=== PATIENT | female | born 2000 | race Caucasian/White ===

== ENCOUNTER 2022-04-30 20:45 | Observation (INO) ==
[2022-04-30] MEDS ORDERED: SODIUM CHLORIDE 0.9% 1000ML 1,000 ML IV SCH (21:15)
[2022-04-30 21:30] LABS: Basophils # (auto) 0.02 K/uL (0-0.2); Basophils % (auto) 0.2 %; Eosinophils # (auto) 0.05 K/uL (0-0.50); Eosinophils % (auto) 0.5 %; Hematocrit (blood only) 37.7 % (34.1-44.9); Hemoglobin 12.3 g/dl (12.0-16.0); Immature Granulocytes # (auto) 0.03 K/uL (0.00-0.02); Immature Granulocytes % (auto) 0.3 %; Lymphocytes # (auto) 2.14 K/uL (1.2-3.4); Lymphocytes % (auto) 22.7 %; Mean Corpuscular Hemoglobin 27.3 pg (25.0-34.0); Mean Corpuscular Hgb Conc 32.6 g/dL (32.0-36.0); Mean Corpuscular Volume 83.6 fL (80.0-100.0); Mean Platelet Volume 10.2 fL (9.4-12.3); Monocytes # (auto) 0.59 K/uL (0.24-0.82); Monocytes % (auto) 6.3 %; Neutrophils # (auto) 6.61 K/uL (1.4-6.5); Platelet Count 331 K/uL (130-400); RDW Coefficient of Variation 14.2 % (11.5-14.5); RDW Standard Deviation 43.3 fL (36.4-46.3); Red Blood Count 4.51 M/uL (3.93-5.22); White Blood Count 9.44 K/ul (4.8-10.8)
[2022-04-30] MEDS ORDERED: SODIUM CHLORIDE 0.9% 1000ML 1,000 ML IV ONE (21:33)
[2022-04-30] MEDS ORDERED: KETOROLAC TROMETHAMINE 15 MG/ML VIAL IV ONE (21:34)
[2022-04-30] MEDS ORDERED: PROCHLORPERAZINE 1 ML IV ONE (21:34)
[2022-04-30] MEDS ORDERED: OPTIRAY 320 125ml IV ONE (21:37)
[2022-04-30 21:42] LABS: Partial Thromboplastin Time 28.7 Seconds (21.0-31.0); Prothrombin Time 11.1 Seconds (9.0-12.0)
[2022-04-30 21:43] LABS: Pregnancy Test, Serum Negative (Negative)
[2022-04-30] MEDS ORDERED: diphenhydrAMINE 50 MG/ML VIAL ONE (21:44)
[2022-04-30 21:55] LABS: Albumin Globulin Ratio 1.4 (0.9-2); Albumin Level 4.4 gm/dl (3.4-5.0); BUN Creatinine Ratio 14.5 (10-20); Bilirubin,Total 0.2 mg/dl (0.2-1.0); Calcium 9.8 mg/dl (8.5-10.1); Creatinine Clr Calc Pharmacy 108.2 ml/min; Est GFR (African American) 146.3 ml/min; Est GFR (Non-African American) 126.2 ml/min; Globulin 3.1 gm/dl (2.5-4.0); Potassium 3.6 mmol/L (3.5-5.1); Total Protein 7.5 gm/dl (6.0-8.3)
[2022-04-30 21:56] LABS: Troponin I High Sensitivity 2.6 pg/ml (0-14)
--- NOTE | 2022-04-30 22:05 | CT Scan Report ---
CT angio neck with con, CT angio head w con, CT head/brain wo con CLINICAL HISTORY: Stroke Like Symptoms TECHNIQUE: Contiguous axial CT images of the head were acquired from the base of the skull to the michael luis without intravenous contrast administration. CT angiography of the head and neck was performed f ollowing intravenous administration of iodinated contrast. Coronal and sagittal MIPS were obtained fr om the axial data set and were submitted for review. Automated dose lowering techniques and/or adjus tment according to patient size were utilized for this examination. All measurements were calculated based on NASCET criteria. CT DOSE: 1015.17 mGy.cm Comparison: None available at the time of this dictation. FINDINGS: CT head: There is no acute intracranial hemorrhage or evidence of acute territorial infarction. No sh ift of the midline structures, mass effect, or extra-axial abnormalities are shown. Lungs and soft tissues are unremarkable. CTA Neck: A 3 vessel aortic arch is shown. There is no significant atherosclerotic plaque in the aor tic arch or the origins of the innominate, left common carotid, and left subclavian arteries. The c ommon carotid, external carotid, cervical segments of the internal carotid arteries, and the cervical segments of the vertebral arteries are patent without hemodynamically significant stenosis. The vert ebral arteries are codominant. CTA Head: The anterior and posterior cerebral circulations are patent. No hemodynamically significan t stenosis, aneurysm, dissection, or arteriovenous malformation is shown. origin of the left po sterior cerebral artery is seen. IMPRESSION: 1. No acute intracranial hemorrhage, evidence of acute territorial infarction, or other acute intrac ranial disease process. 2. No occlusion, hemodynamically significant stenosis, aneurysm, dissection, or arteriovenous malfor mation in the major intracranial arteries. 3. No occlusion, hemodynamically significant stenosis, or dissection in the major cervical arteries. Assessment of stenosis of the internal carotid arteries is based on NASCET criteria. ACT 112: Negative or not required by law. Electronically signed by: Miguel Phillips M.D. 04/30/2022 10:03 PM
[2022-04-30] MEDS ORDERED: dexAMETHasone**PF** 10 MG/ML VIAL IV ONE (23:14)
[2022-04-30] MEDS ORDERED: MAGNESIUM SULFATE / D5W 1 GM/100 ML BAG IV STA (23:14)
[2022-04-30] MEDS ORDERED: METOCLOPRAMIDE HCL INJ 5 MG/ML 2 ML VIAL IV ONE (23:14)
--- NOTE | 2022-05-01 01:09 | Emergency Department Note ---
Impression & Plan Headache, Left arm numbness ED Provider Note INFORMANT: Patient and mother ED PROVIDER(S): Butch Almazan MD CHIEF COMPLAINT: Headache PLAN: Disposition: Admitted Condition: Good Outpatient prescription management: none Referral: None MEDICAL DECISION MAKING: Patient presented to the emergency department because of headache and strokelike symptoms. She was promptly evaluated. Her aphasia and left arm numbness had resolved. She had a nonfocal neurologic examination. She was taken urgently to CT for imaging. CT angiography of the head and neck and brain imaging without did not reveal any acute pathology. Patient was hydrated. She was treated initially with Toradol Compazine and Benadryl. She was reassessed. She was feeling minimal change of the headache. Additional medication was given with IV Reglan and magnesium. Patient was monitored. She was reassessed and headache had resolved. The patient had concerning strokelike symptoms in the setting of headache. Complex migraine seems to be very likely etiology however further management will be necessary. Neurology consultation is not immediately available. MR imaging is indicated. I discussed further management with the patient and mother and they were in agreement. Consultation was made with Dr. Abad Caldwell of the [facility] service. Patient was evaluated in the ER for further management. Triage Nursing notes reviewed and agree them. Vital Signs: reviewed and remarkable for no significant abnormalities Differential diagnosis: CVA, TIA, complex migraine headache, meningitis, sinusitis, CO exposure, ICH, SAH, infection, tumor, headache, sinus thrombosis, arterial dissection, as well as other pathologies. Diagnostics interpreted by me: EC Lead ECG performed and revealed Normal sinus rhythm at 62 normal [place], QRS normal. No elevation or depression. No PACs or PVCs Cardiac Monitoring: Cardiac monitoring ordered by me: The patient was placed on continuous cardiac monitoring and observed. It revealed a normal sinus rhythm at 75 beats per minute without ectopy or evidence of dysrhythmia. Imaging studies: CT angiography of the head and neck are negative for acute pathology. HPI: The patient is a 21year old female who presents to the Emergency Room with complaints of headache. This started this evening and is currently rated as severe. Patient has a history of headaches but has never been formally diagnosed with migraines. The patient also notes the following associated symptoms, difficulty forming words and numbness to the left arm which were new symptoms never before experienced. The patient has taken aspirin medication for relieving factors. Current pain is rated as 10/10. Patient denies any trauma. Mother accompanies patient and helps with history. Patient developed headache and symptoms. She became anxious and then began to breathe fast. EMS was summoned. Pt denies LOC, fevers, chills, diaphoresis, visual changes, neck pain, chest pain, breathing difficulties, nausea, vomiting, abdominal pain, back pain, melena, hematochezia, urinary symptoms, weakness, lymphadenopathy, rash, or other complaints. ROS: See above HPI for pertinent positives & negatives. A total of 10 systems reviewed and were otherwise negative. PAST MEDICAL HISTORY:See Below , headaches PAST SURGICAL HISTORY:See Below, FAMILY HISTORY:See Below SOCIAL HISTORY:See Below, lives with family HOME MEDICATIONS:See Below ALLERGIES:See Below VITALS:See Below PHYSICAL EXAMINATION: GENERAL: Awake, alert, well appearing, no distress HENT: Normocephalic, atraumatic. Oropharynx unremarkable. EYES: PERRL. EOMI. Normal conjunctiva. Sclera non-icteric. NECK: Supple. Normal inspection. Non-tender. No nuchal rigidity. FROM. No bruit. RESPIRATORY: Breath sounds equal. No wheezes. No rhonchi. Normal respiratory effort. CARDIAC: Normal rate. Regular rhythm. No murmurs. No rubs. No JVD. GI: Soft, non distended. No tenderness to palpation. No rebound or guarding. No masses. RECTAL: Deferred. MUSCULOSKELETAL: Unremarkable. No edema. No discoloration. Gross motor strength symmetric. NEURO: Cranial nerves 2-12 grossly intact. Normal sensorium. No sensory or motor deficits noted. Speech normal. No pronator drift. Normal rapid alternating movements. SKIN: No rash or jaundice noted. LYMPH: No adenopathy. Butch Almazan MD Past Med/Surg History Social History Smoking Status: Never smoker Feels Safe at Home: Yes Results & Data (ED) Vital Signs Vital Signs - 24 hr 04/30/22 20:49 04/30/22 22:18 04/30/22 23:19 Temperature 36.7 C Temperature Source Oral Pulse Rate 76 Pulse Rate [Finger] 61 66 Pulse Rhythm Regular Pulse Rhythm [Finger] Regular Regular Pulse Strength Normal Pulse Strength [Finger] Normal Normal Respiratory Rate 20 16 18 Respiratory Effort / Characteristics Non-Labored Spontaneous Non-Labored Spontaneous Non-Labored Spontaneous Respiratory Depth Normal Normal Normal Respiratory Pattern Regular Blood Pressure 116/67 Blood Pressure [Right Arm] 103/64 98/54 L Blood Pressure Mean 83 Blood Pressure Mean [Right Arm] 77 68 Blood Pressure Position Sitting Blood Pressure Position [Right Arm] Sitting Sitting Pulse Oximetry 100 98 99 Oxygen Delivery Method Room Air Room Air Room Air Sepsis Recent Fever Within 48 Hours No Sepsis New/Unexplained Change in Mental Status No Sepsis Action Taken by Nursing No Action Required 05/01/22 00:32 Temperature Temperature Source Pulse Rate Pulse Rate [Finger] 75 Pulse Rhythm Pulse Rhythm [Finger] Regular Pulse Strength Pulse Strength [Finger] Normal Respiratory Rate 16 Respiratory Effort / Characteristics Non-Labored Spontaneous Respiratory Depth Normal Respiratory Pattern Blood Pressure Blood Pressure [Right Arm] 100/57 L Blood Pressure Mean Blood Pressure Mean [Right Arm] 71 Blood Pressure Position Blood Pressure Position [Right Arm] Sitting Pulse Oximetry 99 Oxygen Delivery Method Room Air Sepsis Recent Fever Within 48 Hours Sepsis New/Unexplained Change in Mental Status Sepsis Action Taken by Nursing Laboratory Data Result diagrams: 04/30/22 21:19 04/30/22 21:19 Lab Results 04/30/22 04/30/22 04/30/22 Range/Units 21:18 21:19 21:19 WBC 9.44 (4.8-10.8) K/ul RBC 4.51 (3.93-5.22) M/uL Hgb 12.3 (12.0-16.0) g/dl Hct 37.7 (34.1-44.9) % MCV 83.6 (80.0-100.0) fL MCH 27.3 (25.0-34.0) pg MCHC 32.6 (32.0-36.0) g/dL RDW Std Deviation 43.3 (36.4-46.3) fL RDW Coeff of Lara 14.2 (11.5-14.5) % Plt Count 331 (130-400) K/uL MPV 10.2 (9.4-12.3) fL Immature Gran % (Auto) 0.3 % Neut % (Auto) 70.0 % Lymph % (Auto) 22.7 % [place] % (Auto) 6.3 % Eos % (Auto) 0.5 % Baso % (Auto) 0.2 % Neut # (Auto) 6.61 H (1.4-6.5) K/uL Lymph # (Auto) 2.14 (1.2-3.4) K/uL [place] # (Auto) 0.59 (0.24-0.82) K/uL Eos # (Auto) 0.05 (0-0.50) K/uL Baso # (Auto) 0.02 (0-0.2) K/uL Immature Gran # (Auto) 0.03 H (0.00-0.02) K/uL PT (9.0-12.0) Seconds INR (0.9-1.1) APTT (21.0-31.0) Seconds PTT Ratio Sodium (136-145) mmol/L Potassium (3.5-5.1) mmol/L Chloride (98-107) mmol/L Carbon Dioxide (21-32) mmol/L Anion Gap (3-11) BUN (6-23) mg/dl Creatinine (0.6-1.2) mg/dl Est Cr Clr Drug Dosing ml/min Est GFR ( Amer) ml/min Est GFR (Non-Af Amer) ml/min BUN/Creatinine Ratio (10-20) Glucose (70-99(Fasting)) mg/dl POC Glucose 89 (70-99) mg/dl Calcium (8.5-10.1) mg/dl Magnesium (1.7-2.4) mg/dl Total Bilirubin (0.2-1.0) mg/dl AST (13-39) U/L ALT (7-52) U/L Alkaline Phosphatase (34-104) U/L Troponin I High Sens (0-14) pg/ml Total Protein (6.0-8.3) gm/dl Albumin (3.4-5.0) gm/dl Globulin (2.5-4.0) gm/dl Albumin/Globulin Ratio (0.9-2) HCG, Qual Negative (Negative) SARS-CoV-2, RNA, NAAT (NEGATIVE) 04/30/22 04/30/22 05/01/22 Range/Units 21:19 21:19 01:01 WBC (4.8-10.8) K/ul RBC (3.93-5.22) M/uL Hgb (12.0-16.0) g/dl Hct (34.1-44.9) % MCV (80.0-100.0) fL MCH (25.0-34.0) pg MCHC (32.0-36.0) g/dL RDW Std Deviation (36.4-46.3) fL RDW Coeff of Lara (11.5-14.5) % Plt Count (130-400) K/uL MPV (9.4-12.3) fL Immature Gran % (Auto) % Neut % (Auto) % Lymph % (Auto) % [place] % (Auto) % Eos % (Auto) % Baso % (Auto) % Neut # (Auto) (1.4-6.5) K/uL Lymph # (Auto) (1.2-3.4) K/uL [place] # (Auto) (0.24-0.82) K/uL Eos # (Auto) (0-0.50) K/uL Baso # (Auto) (0-0.2) K/uL Immature Gran # (Auto) (0.00-0.02) K/uL PT 11.1 (9.0-12.0) Seconds INR 1.0 (0.9-1.1) APTT 28.7 (21.0-31.0) Seconds PTT Ratio 1.0 Sodium 139 (136-145) mmol/L Potassium 3.6 (3.5-5.1) mmol/L Chloride 105 (98-107) mmol/L Carbon Dioxide 25 (21-32) mmol/L Anion Gap 9 (3-11) BUN 10 (6-23) mg/dl Creatinine 0.69 (0.6-1.2) mg/dl Est Cr Clr Drug Dosing 108.2 ml/min Est GFR ( Amer) 146.3 ml/min Est GFR (Non-Af Amer) 126.2 ml/min BUN/Creatinine Ratio 14.5 (10-20) Glucose 93 (70-99(Fasting)) mg/dl POC Glucose (70-99) mg/dl Calcium 9.8 (8.5-10.1) mg/dl Magnesium 2.0 (1.7-2.4) mg/dl Total Bilirubin 0.2 (0.2-1.0) mg/dl AST 13 (13-39) U/L ALT 13 (7-52) U/L Alkaline Phosphatase 87 (34-104) U/L Troponin I High Sens 2.6 (0-14) pg/ml Total Protein 7.5 (6.0-8.3) gm/dl Albumin 4.4 (3.4-5.0) gm/dl Globulin 3.1 (2.5-4.0) gm/dl Albumin/Globulin Ratio 1.4 (0.9-2) HCG, Qual (Negative) SARS-CoV-2, RNA, NAAT NEGATIVE (NEGATIVE) Administered Medications Sodium Chloride (Nss 1000ml) 1,000 mls @ 50 mls/hr IV .Q20H JENNIFFER Stop: 05/30/22 21:14 Last Admin: 05/01/22 01:11 Dose: 50 mls/hr Documented By: WILL Discontinued Medications Dexamethasone Sodium Phosphate (DexamethasonePf 10 Mg/Ml Vial) 10 mg IV NOW ONE Stop: 04/30/22 23:15 Last Admin: 04/30/22 23:21 Dose: 10 mg Documented By: WILL Diphenhydramine HCl (Diphenhydramine 50 Mg/Ml Vial) Confirm Administered Dose 50 mg .ROUTE .STK-MED ONE Stop: 04/30/22 21:45 Last Admin: 04/30/22 21:51 Dose: Not Given Documented By: WILL Sodium Chloride (Nss 1000ml) 1,000 mls @ 999 mls/hr IV .Q1H1M ONE Stop: 04/30/22 22:33 Last Infusion: 05/01/22 00:32 Dose: 0 mls/hr Documented By: Admin: 04/30/22 21:45 Dose: 999 mls/hr Documented By: WILL Prochlorperazine (Compazine) 1 mls @ 1 mls/min IV ONE ONE Stop: 04/30/22 21:35 Last Admin: 04/30/22 21:46 Dose: 1 mls/min Documented By: WILL Diphenhydramine HCl 12.5 mg/ (Syringe) 0.25 mls @ 1 mls/hr IV NOW STA Stop: 04/30/22 21:48 Last Admin: 04/30/22 21:51 Dose: 1 mls/hr Documented By: WILL Magnesium Sulfate/Dextrose (Magnesium Sulfate / D5w) 1 gm in 100 mls @ 100 mls/hr IV NOW STA Stop: 05/01/22 00:13 Last Infusion: 05/01/22 00:31 Dose: 0 mls/hr Documented By: Admin: 04/30/22 23:21 Dose: 100 mls/hr Documented By: WILL Ioversol (Optiray 320 125ml) 120 ml IV ONCE ONE Stop: 04/30/22 21:38 Last Admin: 04/30/22 21:38 Dose: 120 ml Documented By: ULISSES Ketorolac Tromethamine (Ketorolac Tromethamine 15 Mg/Ml Vial) 10 mg IV NOW ONE Stop: 04/30/22 21:35 Last Admin: 04/30/22 21:54 Dose: 10 mg Documented By: WILL Metoclopramide HCl (Metoclopramide Hcl Inj 5 Mg/Ml 2 Ml Vial) 5 mg IV ONE ONE Stop: 04/30/22 23:15 Last Admin: 04/30/22 23:21 Dose: 5 mg Documented By: WILL Imaging Data Radiologist's Impression: Head CT 04/30/22 21:08 CT angio neck with con, CT angio head w con, CT head/brain wo con CLINICAL HISTORY: Stroke Like Symptoms TECHNIQUE: Contiguous axial CT images of the head were acquired from the base of the skull to the vertex without intravenous contrast administration. CT angiography of the head and neck was performed following intravenous administration of iodinated contrast. Coronal and sagittal MIPS were obtained from the axial data set and were submitted for review. Automated dose lowering techniques and/or adjustment according to patient size were utilized for this examination. All measurements were calculated based on NASCET criteria. CT DOSE: 1015.17 mGy.cm Comparison: None available at the time of this dictation. FINDINGS: CT head: There is no acute intracranial hemorrhage or evidence of acute territorial infarction. No shift of the midline structures, mass effect, or extra-axial abnormalities are shown. Lungs and soft tissues are unremarkable. CTA Neck: A 3 vessel aortic arch is shown. There is no significant atheroscler otic plaque in the aortic arch or the origins of the innominate, left common carotid, and left subclavian arteries. The common carotid, external carotid, cervical segments of the internal carotid arteries, and the cervical segments of the vertebral arteries are patent without hemodynamically significant stenosis. The vertebral arteries are codominant. CTA Head: The anterior and posterior cerebral circulations are patent. No hemodynamically significant stenosis, aneurysm, dissection, or arteriovenous malformation is shown. origin of the left posterior cerebral artery is seen. IMPRESSION: 1. No acute intracranial hemorrhage, evidence of acute territorial infarction, or other acute intracranial disease process. 2. No occlusion, hemodynamically significant stenosis, aneurysm, dissection, or arteriovenous malformation in the major intracranial arteries. 3. No occlusion, hemodynamically significant stenosis, or dissection in the major cervical arteries. Assessment of stenosis of the internal carotid arteries is based on NASCET criteria. ACT 112: Negative or not required by law. Electronically signed by: Miguel Phillips M.D. 04/30/2022 10:03 PM Head CTA 04/30/22 21:08 CT angio neck with con, CT angio head w con, CT head/brain wo con CLINICAL HISTORY: Stroke Like Symptoms TECHNIQUE: Contiguous axial CT images of the head were acquired from the base of the skull to the vertex without intravenous contrast administration. CT angiography of the head and neck was performed following intravenous administration of iodinated contrast. Coronal and sagittal MIPS were obtained from the axial data set and were submitted for review. Automated dose lowering techniques and/or adjustment according to patient size were utilized for this examination. All measurements were calculated based on NASCET criteria. CT DOSE: 1015.17 mGy.cm Comparison: None available at the time of this dictation. FINDINGS: CT head: There is no acute intracranial hemorrhage or evidence of acute territorial infarction. No shift of the midline structures, mass effect, or extra-axial abnormalities are shown. Lungs and soft tissues are unremarkable. CTA Neck: A 3 vessel aortic arch is shown. There is no significant a therosclerotic plaque in the aortic arch or the origins of the innominate, left common carotid, and left subclavian arteries. The common carotid, external carotid, cervical segments of the internal carotid arteries, and the cervical segments of the vertebral arteries are patent without hemodynamically significant stenosis. The vertebral arteries are codominant. CTA Head: The anterior and posterior cerebral circulations are patent. No hemodynamically significant stenosis, aneurysm, dissection, or arteriovenous malformation is shown. origin of the left posterior cerebral artery is seen. IMPRESSION: 1. No acute intracranial hemorrhage, evidence of acute territorial infarction, or other acute intracranial disease process. 2. No occlusion, hemodynamically significant stenosis, aneurysm, dissection, or arteriovenous malformation in the major intracranial arteries. 3. No occlusion, hemodynamically significant stenosis, or dissection in the major cervical arteries. Assessment of stenosis of the internal carotid arteries is based on NASCET criteria. ACT 112: Negative or not required by law. Electronically signed by: Miguel Phillips M.D. 04/30/2022 10:03 PM Neck CTA 04/30/22 21:08 CT angio neck with con, CT angio head w con, CT head/brain wo con CLINICAL HISTORY: Stroke Like Symptoms TECHNIQUE: Contiguous axial CT images of the head were acquired from the base of the skull to the vertex without intravenous contrast administration. CT angiography of the head and neck was performed following intravenous administration of iodinated contrast. Coronal and sagittal MIPS were obtained from the axial data set and were submitted for review. Automated dose lowering techniques and/or adjustment according to patient size were utilized for this examination. All measurements were calculated based on NASCET criteria. CT DOSE: 1015.17 mGy.cm Comparison: None available at the time of this dictation. FINDINGS: CT head: There is no acute intracranial hemorrhage or evidence of acute territorial infarction. No shift of the midline structures, mass effect, or extra-axial abnormalities are shown. Lungs and soft tissues are unremarkable. CTA Neck: A 3 vessel aortic arch is shown. There is no significant atherosclerotic plaque in the aortic arch or the origins of the innominate, left common carotid, and left subclavian arteries. The common carotid, external carotid, cervical segments of the internal carotid arteries, and the cervical segments of the vertebral arteries are patent without hemodynamically significant stenosis. The vertebral arteries are codominant. CTA Head: The anterior and posterior cerebral circulations are patent. No hemodynamically significant stenosis, aneurysm, dissection, or arteriovenous malformation is shown. origin of the left posterior cerebral artery is seen. IMPRESSION: 1. No acute intracranial hemorrhage, evidence of acute territorial infarction, or other acute intracranial disease process. 2. No occlusion, hemodynamically significant stenosis, aneurysm, dissection, or arteriovenous malformation in the major intracranial arteries. 3. No occlusion, hemodynamically significant stenosis, or dissection in the major cervical arteries. Assessment of stenosis of the internal carotid arteries is based on NASCET criteria. ACT 112: Negative or not required by law. Electronically signed by: Miguel Phillips M.D. 04/30/2022 10:03 PM Discharge Plan Visit Data Chief Complaint: Headache ED Provider: Butch Almazan Discharge Problem: Headache, Left arm numbness Forms Stand Alone Forms: My [facility] Referrals Referrals: PCP,NO [Primary Care Provider] -
--- NOTE | 2022-05-01 02:05 | History & Physical Report ---
Date of Service May 01, 2022 Assessment & Plan (1) Headache: Plan: 21 year old female with depression on sertraline who presents w/ left sided headache with associated left facial and left arm numbness and tingling. - given hx of similar headaches in past, including numbness/tingling, most likely is atypical migraine. Does note recent increased stressors - also considered paroxymal hemicrania, cervicogenic headache, and lower suspicion for stroke as no specific risk factors. However, will pursue stroke workup. - vitals, cbc, cmp reviewed. stable - consult neuro - CTA head/neck and CT head reassuring - routine MRI brain w/o contrast ordered - echo w/ bubble study - defer hypercoagulable workup at this time - will discuss headache abortive therapy vs prophylatic therapy if stroke workup neg. As per HPI, has only tried over the counter baby aspirin or Tylenol at home. Consider lifestyle modifications and techniques regarding stressors. (2) Depression: Plan: - stable. continue home sertraine. Plan FEN/GI: regular diet. maintenance fluids 50ml/hr ppx: scds code: full dispo: med tele History of Present Illness Chief Complaint: headache Primary Care Provider: NO PCP 21 year old female with anxiety on sertraline who presents w/ left sided headache. It is located at the top of her head, anterior half and goes down neck. She does have chronic neck and back pains. She has had chronic headaches that she presumes to be migraines. Frequency was previously once a month, but recently became once a week, and had 2 this week. They usually are severe and have aura type symptoms, including arm numbness and blurry vision. + photophobia. Today, she had similar episode, rated as 10/10, and had facial and left arm numbness and tingling, mild blurry vision mild chest tightness, so she called EMS. No speech slurring or aphasia. Denies falls or msk injuries. She has been under increased stress lately as she has been taking care of her great grandmother during upcoming transition to nursing facility. Denies substance use. Denies family hx of arterial thrombosis. Mother had 1 episode of migraine headache during . Patient rarely will take a tylenol or baby asa. Mother is present at bedside and assisted with the history. EMS report: L sided SHEPHERD. Resolved L sided numbness and facial tingling. Had photophobia and tinnitus. 1 hour onset. +nausea, no vomiting. ED course: 1L NSS. phenergan, benadryl, toradol, dexamethasone, magnesium, reglan. S/p this intervention, patient's headache improved to a 1/10. She still has photophobia and exacerbation of headache with head movement. Allergies Allergy/AdvReac Type Severity Reaction Status Date / Time No Known Allergies Allergy Unverified 05/01/22 02:21 Home Medications Medication Instructions Recorded Confirmed Type aspirin 81 mg tablet,delayed 81 mg PO DAILY PRN .Headache 05/01/22 History release multivitamin with minerals-folic 1 tab PO DAILY 05/01/22 05/01/22 History acid 200 mcg chewable tablet (Adult Multivitamin Gummies) sertraline 100 mg tablet 100 mg PO DAILY 05/01/22 05/01/22 History verapamil 120 mg 24 hr 120 mg PO HS #30 caps 05/01/22 Rx capsule,extended release Past Med/Surg History Medical History (Updated 05/01/22 @ 15:25 by Raul Adnres DO) Depression Headache Social History Smoking Status: Never smoker Hx Alcohol Use: No Hx Substance Use: No Communication Ability: Effective Beliefs That Will Affect Care: None Current Living Situation: Other Current Living Situation Comment: lives w/ grandparent, will be moving back in with family Feels Safe at Home: Yes Review of Systems Review of Systems: All systems reviewed & are unremarkable except as noted in HPI & below Physical Exam Physical Exam: General: Grossly A&O. NAD. Cooperative. HEENT: Atraumatic, normocephalic. EOMI Pulm: CTAB. -wheezes, -rales, -rhonchi. No respiratory distress. Cardiac: RRR, -mrg. Radial pulses intact and symmetrical. Abdominal: Nontender, nondistended, soft. Msk: No C spine ttp. + mild left lateral trapezius distribution soreness. Moving all extremities without difficulty. Negative Spurling's bilaterally. Integ: Warm, dry, intact. Neuro: CN II-XII intact. Normal [id number]. Normal strenth and sensation of extremities. No aphasia. Results & Data Results & Data ([facility]) Vital Signs (Past 12 Hours) Vital Signs Temp Pulse Pulse Resp BP BP Pulse Ox 05/01/22 00:32 75 16 100/57 L 99 04/30/22 23:19 66 18 98/54 L 99 04/30/22 22:18 61 16 103/64 98 04/30/22 20:49 36.7 C 76 20 116/67 100 O2 Del Method 05/01/22 00:32 Room Air 04/30/22 23:19 Room Air 04/30/22 22:18 Room Air 04/30/22 20:49 Room Air Laboratory Results Cardiac Enzymes 04/30/22 Range/Units 21:19 AST 13 (13-39) U/L Troponin I High Sens 2.6 (0-14) pg/ml Coagulation 04/30/22 Range/Units 21:19 PT 11.1 (9.0-12.0) Seconds APTT 28.7 (21.0-31.0) Seconds CBC 04/30/22 Range/Units 21:19 WBC 9.44 (4.8-10.8) K/ul RBC 4.51 (3.93-5.22) M/uL Hgb 12.3 (12.0-16.0) g/dl Hct 37.7 (34.1-44.9) % Plt Count 331 (130-400) K/uL Neut # (Auto) 6.61 H (1.4-6.5) K/uL Lymph # (Auto) 2.14 (1.2-3.4) K/uL [place] # (Auto) 0.59 (0.24-0.82) K/uL Eos # (Auto) 0.05 (0-0.50) K/uL Baso # (Auto) 0.02 (0-0.2) K/uL Comprehensive Metabolic Panel 04/30/22 Range/Units 21:19 Sodium 139 (136-145) mmol/L Potassium 3.6 (3.5-5.1) mmol/L Chloride 105 (98-107) mmol/L Carbon Dioxide 25 (21-32) mmol/L BUN 10 (6-23) mg/dl Creatinine 0.69 (0.6-1.2) mg/dl Glucose 93 (70-99(Fasting)) mg/dl Calcium 9.8 (8.5-10.1) mg/dl AST 13 (13-39) U/L ALT 13 (7-52) U/L Alkaline Phosphatase 87 (34-104) U/L Total Protein 7.5 (6.0-8.3) gm/dl Albumin 4.4 (3.4-5.0) gm/dl Intake and Output 04/30/22 04/30/22 05/01/22 14:59 22:59 06:59 Intake Total 1100 / 1100 Balance 1100 / 1100 Intake: IV 1100 / 1100 Magnesium Sulfate / D5w 1 gm In 100 / 100 100 ml @ 100 mls/hr IV NOW STA Rx#:[id number] Sodium Chloride 0.9% 1000ML 1, 1000 / 1000 000 ml @ 999 mls/hr IV .Q1H1M ONE Rx#:[id number] Other: Weight 59 kg Weight Measurement Method Built in Equivalent DATA Patient Weight 05/01/22 06:59 Weight 59 kg Diagnostic Findings Head CT 04/30/22 21:08 CT angio neck with con, CT angio head w con, CT head/brain wo con CLINICAL HISTORY: Stroke Like Symptoms TECHNIQUE: Contiguous axial CT images of the head were acquired from the base of the skull to the vertex without intravenous contrast administration. CT angiography of the head and neck was performed following intravenous administration of iodinated contrast. Coronal and sagittal MIPS were obtained from the axial data set and were submitted for review. Automated dose lowering techniques and/or adjustment according to patient size were utilized for this examination. All measurements were calculated based on NASCET criteria. CT DOSE: 1015.17 mGy.cm Comparison: None available at the time of this dictation. FINDINGS: CT head: There is no acute intracranial hemorrhage or evidence of acute territorial infarction. No shift of the midline structures, mass effect, or extra-axial abnormalities are shown. Lungs and soft tissues are unremarkable. CTA Neck: A 3 vessel aortic arch is shown. There is no significant atherosclerotic plaque in the aortic arch or the origins of the innominate, left common carotid, and left subclavian arteries. The common carotid, external carotid, cervical segments of the internal carotid arteries, and the cervical segments of the vertebral arteries are patent without hemodynamically significant stenosis. The vertebral arteries are codominant. CTA Head: The anterior and posterior cerebral circulations are patent. No hemodynamically significant stenosis, aneurysm, dissection, or arteriovenous malformation is shown. origin of the left posterior cerebral artery is seen. IMPRESSION: 1. No acute intracranial hemorrhage, evidence of acute territorial infarction, or other acute intracranial disease process. 2. No occlusion, hemodynamically significant stenosis, aneurysm, dissection, or arteriovenous malformation in the major intracranial arteries. 3. No occlusion, hemodynamically significant stenosis, or dissection in the major cervical arteries. Assessment of stenosis of the internal carotid arteries is based on NASCET criteria. ACT 112: Negative or not required by law. Electronically signed by: Miguel Phillips M.D. 04/30/2022 10:03 PM Head CTA 04/30/22 21:08 CT angio neck with con, CT angio head w con, CT head/brain wo con CLINICAL HISTORY: Stroke Like Symptoms TECHNIQUE: Contiguous axial CT images of the head were acquired from the base of the skull to the vertex without intravenous contrast administration. CT angiography of the head and neck was performed following intravenous administration of iodinated contrast. Coronal and sagittal MIPS were obtained from the axial data set and were submitted for review. Automated dose lowering techniques and/or adjustment according to patient size were utilized for this examination. All measurements were calculated based on NASCET criteria. CT DOSE: 1015.17 mGy.cm Comparison: None available at the time of this dictation. FINDINGS: CT head: There is no acute intracranial hemorrhage or evidence of acute t erritorial infarction. No shift of the midline structures, mass effect, or extra-axial abnormalities are shown. Lungs and soft tissues are unremarkable. CTA Neck: A 3 vessel aortic arch is shown. There is no significant atherosclerotic plaque in the aortic arch or the origins of the innominate, left common carotid, and left subclavian arteries. The common carotid, external carotid, cervical segments of the internal carotid arteries, and the cervical segments of the vertebral arteries are patent without hemodynamically significant stenosis. The vertebral arteries are codominant. CTA Head: The anterior and posterior cerebral circulations are patent. No hemodynamically significant stenosis, aneurysm, dissection, or arteriovenous malformation is shown. origin of the left posterior cerebral artery is seen. IMPRESSION: 1. No acute intracranial hemorrhage, evidence of acute territorial infarction, or other acute intracranial disease process. 2. No occlusion, hemodynamically significant stenosis, aneurysm, dissection, or arteriovenous malformation in the major intracranial arteries. 3. No occlusion, hemodynamically significant stenosis, or dissection in the major cervical arteries. Assessment of stenosis of the internal carotid arteries is based on NASCET criteria. ACT 112: Negative or not required by law. Electronically signed by: Miguel Phillips M.D. 04/30/2022 10:03 PM Neck CTA 04/30/22 21:08 CT angio neck with con, CT angio head w con, CT head/brain wo con CLINICAL HISTORY: Stroke Like Symptoms TECHNIQUE: Contiguous axial CT images of the head were acquired from the base of the skull to the vertex without intravenous contrast administration. CT angiography of the head and neck was performed following intravenous administration of iodinated contrast. Coronal and sagittal MIPS were obtained from the axial data set and were submitted for review. Automated dose lowering techniques and/or adjustment according to patient size were utilized for this examination. All measurements were calculated based on NASCET criteria. CT DOSE: 1015.17 mGy.cm Comparison: None available at the time of this dictation. FINDINGS: CT head: There is no acute intracranial hemorrhage or evidence of acute territorial infarction. No shift of the midline structures, mass effect, or extra-axial abnormalities are shown. Lungs and soft tissues are unremarkable. CTA Neck: A 3 vessel aortic arch is shown. There is no significant atherosclerotic plaque in the aortic arch or the origins of the innominate, left common carotid, and left subclavian arteries. The common carotid, external carotid, cervical segments of the internal carotid arteries, and the cervical segments of the vertebral arteries are patent without hemodynamically significant stenosis. The vertebral arteries are codominant. CTA Head: The anterior and posterior cerebral circulations are patent. No hemodynamically significant stenosis, aneurysm, dissection, or arteriovenous malformation is shown. origin of the left posterior cerebral artery is seen. IMPRESSION: 1. No acute intracranial hemorrhage, evidence of acute territorial infarction, or other acute intracranial disease process. 2. No occlusion, hemodynamically significant stenosis, aneurysm, dissection, or arteriovenous malformation in the major intracranial arteries. 3. No occlusion, hemodynamically significant stenosis, or dissection in the major cervical arteries. Assessment of stenosis of the internal carotid arteries is based on NASCET criteria. ACT 112: Negative or not required by law. Electronically signed by: Miguel Phillips M.D. 04/30/2022 10:03 PM ECG Additional Comments: ecg per my read. nsr 62. normal axis and intervals. Mild early repolarizatio. Code Status & VTE Plan Code Status full VTE Prophylaxis Plan VTE Prophylaxis will be ordered: Yes Supervising Physician Co-Signing Physician Notes Attending addendum: I have physically seen this patient, have supervised the medical residents activities, and agree with the H&P unless as otherwise noted. Assessment and Plan: Headache- History of similar headaches, however this is more intense, lasted longer and included numbness and tingling CTA head neck and CT head negative Order MRI brain without contrast The patient will be admitted to telemetry for serial cardiac enzymes, serial EKG's, cardiac rhythm monitoring and a 2-D echocardiogram with Dopplers. Consider arterial hypercoagulable work-up Suspect complicated migraine Consult neurology Depression- Continue sertraline Resident Activity Tracking Resident Involvement: Resident Care Provided Care Provided: Adult Hospital Medicine
[2022-05-01] MEDS ORDERED: ACETAMINOPHEN 325 MG TAB PO PRN (04:41)
[2022-05-01] MEDS ORDERED: ONDANSETRON INJ 2 MG/ML 2 ML VIAL IV PRN (04:41)
[2022-05-01] MEDS ORDERED: PHARMACIST DISCHARGE MED REC CONSULT PRN (04:41)
[2022-05-01 07:31] LABS: Hematocrit (blood only) 41.4 % (34.1-44.9); Hemoglobin 13.1 g/dl (12.0-16.0); Mean Corpuscular Hgb Conc 31.6 g/dL (32.0-36.0); Mean Corpuscular Volume 85.4 fL (80.0-100.0); Mean Platelet Volume 10.6 fL (9.4-12.3); Platelet Count 337 K/uL (130-400); RDW Coefficient of Variation 14.2 % (11.5-14.5); RDW Standard Deviation 43.9 fL (36.4-46.3); Red Blood Count 4.85 M/uL (3.93-5.22); White Blood Count 8.08 K/ul (4.8-10.8)
--- NOTE | 2022-05-01 07:55 | Hospitalist Progress Note ---
Date of Service May 01, 2022 Assessment & Plan (1) Headache: Plan: 21 year old female with depression on sertraline who presents w/ left sided headache with associated left facial and left arm numbness and tingling. - given hx of similar headaches in past, including numbness/tingling, most likely is atypical migraine. Does note recent increased stressors - also considered paroxymal hemicrania, cervicogenic headache, and lower suspicion for stroke as no specific risk factors. However, will pursue stroke workup. - vitals, cbc, cmp reviewed. stable - consult neuro - CTA head/neck and CT head reassuring - routine MRI brain w/o contrast ordered - echo w/ bubble study - defer hypercoagulable workup at this time - will discuss headache abortive therapy vs prophylatic therapy if stroke workup neg. As per HPI, has only tried over the counter baby aspirin or Tylenol at home. Consider lifestyle modifications and techniques regarding stressors. (2) Depression: Plan: - stable. continue home sertraine. Plan FEN/GI: regular diet. maintenance fluids 50ml/hr ppx: scds code: full dispo: med tele Admission and Anticipated Discharge Date Admission Date: May 01, 2022 Subjective Today Huma states she is feeling better than yesterday. She was able to get some sleep overnight and has been eating and drinking. She denies any weakness, numbness, tingling, N/V, or changes in vision Has been able to get up and go to the bathroom when needed. States that her headache has gone away, she just has some tenderness at the left orthodox and neck, also notes some pain around her left eye when she blinks hard. Review of Systems Review of Systems: As per HPI Physical Exam Constitutional: well nourished and comfortable; no acute distress ENMT: external ear and nose normal, oropharynx normal Respiratory: normal respiratory effort, lungs clear to auscultation Cardiovascular: RRR, no murmur, no edema Gastrointestinal (Abdomen): normal bowel sounds, soft, nontender, no hepatosplenomegaly Musculoskeletal: no cyanosis or clubbing, extremities motor strength 5/5 Neurologic: normal touch/pain/proprioception, moves all extremities and awake Cranial Nerves: EOM intact bilaterally, normal facial strength, normal hearing, able to rotate head bilaterally and able to elevate shoulders bilaterally Results & Data Results & Data ([facility]) Vital Signs (Past 12 Hours) Vital Signs Temp Pulse Pulse Resp BP BP Pulse Ox 05/01/22 07:00 60 05/01/22 06:32 36.5 C 73 18 100/57 L 97 05/01/22 05:04 70 05/01/22 04:45 36.7 C 70 18 112/63 99 05/01/22 04:41 05/01/22 04:41 36.7 C 70 20 112/63 99 05/01/22 02:00 70 18 107/53 L 97 05/01/22 00:32 75 16 100/57 L 99 04/30/22 23:19 66 18 98/54 L 99 04/30/22 22:18 61 16 103/64 98 04/30/22 20:49 36.7 C 76 20 116/67 100 Pulse Ox O2 Del Method O2 Del Method 05/01/22 07:00 05/01/22 06:32 Room Air 05/01/22 05:04 05/01/22 04:45 Room Air 05/01/22 04:41 99 Room Air 05/01/22 04:41 Room Air 05/01/22 02:00 Room Air 05/01/22 00:32 Room Air 04/30/22 23:19 Room Air 04/30/22 22:18 Room Air 04/30/22 20:49 Room Air Laboratory Results Laboratory Results - last 24 hr 04/30/22 04/30/22 04/30/22 21:18 21:19 21:19 WBC 9.44 RBC 4.51 Hgb 12.3 Hct 37.7 MCV 83.6 MCH 27.3 MCHC 32.6 RDW Std Deviation 43.3 RDW Coeff of Lara 14.2 Plt Count 331 MPV 10.2 Immature Gran % (Auto) 0.3 Neut % (Auto) 70.0 Lymph % (Auto) 22.7 [place] % (Auto) 6.3 Eos % (Auto) 0.5 Baso % (Auto) 0.2 Neut # (Auto) 6.61 H Lymph # (Auto) 2.14 [place] # (Auto) 0.59 Eos # (Auto) 0.05 Baso # (Auto) 0.02 Immature Gran # (Auto) 0.03 H PT INR APTT PTT Ratio Sodium Potassium Chloride Carbon Dioxide Anion Gap BUN Creatinine Est Cr Clr Drug Dosing Est GFR ( Amer) Est GFR (Non-Af Amer) BUN/Creatinine Ratio Glucose POC Glucose 89 Estimat Average Glucose Hemoglobin A1c Calcium Magnesium Total Bilirubin AST ALT Alkaline Phosphatase Troponin I High Sens Total Protein Albumin Globulin Albumin/Globulin Ratio Triglycerides Cholesterol LDL Cholesterol, Calc VLDL Cholesterol, Calc HDL Cholesterol Cholesterol/HDL Ratio HCG, Qual Negative SARS-CoV-2, RNA, NAAT 04/30/22 04/30/22 05/01/22 21:19 21:19 01:01 WBC RBC Hgb Hct MCV MCH MCHC RDW Std Deviation RDW Coeff of Lara Plt Count MPV Immature Gran % (Auto) Neut % (Auto) Lymph % (Auto) [place] % (Auto) Eos % (Auto) Baso % (Auto) Neut # (Auto) Lymph # (Auto) [place] # (Auto) Eos # (Auto) Baso # (Auto) Immature Gran # (Auto) PT 11.1 INR 1.0 APTT 28.7 PTT Ratio 1.0 Sodium 139 Potassium 3.6 Chloride 105 Carbon Dioxide 25 Anion Gap 9 BUN 10 Creatinine 0.69 Est Cr Clr Drug Dosing 108.2 Est GFR ( Amer) 146.3 Est GFR (Non-Af Amer) 126.2 BUN/Creatinine Ratio 14.5 Glucose 93 POC Glucose Estimat Average Glucose Hemoglobin A1c Calcium 9.8 Magnesium 2.0 Total Bilirubin 0.2 AST 13 ALT 13 Alkaline Phosphatase 87 Troponin I High Sens 2.6 Total Protein 7.5 Albumin 4.4 Globulin 3.1 Albumin/Globulin Ratio 1.4 Triglycerides Cholesterol LDL Cholesterol, Calc VLDL Cholesterol, Calc HDL Cholesterol Cholesterol/HDL Ratio HCG, Qual SARS-CoV-2, RNA, NAAT NEGATIVE 05/01/22 05/01/22 05/01/22 07:08 07:08 07:08 WBC 8.08 RBC 4.85 Hgb 13.1 Hct 41.4 MCV 85.4 MCH 27.0 MCHC 31.6 L RDW Std Deviation 43.9 RDW Coeff of Lara 14.2 Plt Count 337 MPV 10.6 Immature Gran % (Auto) Neut % (Auto) Lymph % (Auto) [place] % (Auto) Eos % (Auto) Baso % (Auto) Neut # (Auto) Lymph # (Auto) [place] # (Auto) Eos # (Auto) Baso # (Auto) Immature Gran # (Auto) PT INR APTT PTT Ratio Sodium 139 Potassium 4.2 Chloride 106 Carbon Dioxide 23 Anion Gap 10 BUN 7 Creatinine 0.70 Est Cr Clr Drug Dosing 107.5 Est GFR ( Amer) 145.6 Est GFR (Non-Af Amer) 125.6 BUN/Creatinine Ratio 10.0 Glucose 139 H POC Glucose Estimat Average Glucose 111 Hemoglobin A1c 5.5 Calcium 9.9 Magnesium Total Bilirubin AST ALT Alkaline Phosphatase Troponin I High Sens Total Protein Albumin Globulin Albumin/Globulin Ratio Triglycerides 58 Cholesterol 244 H LDL Cholesterol, Calc 180 VLDL Cholesterol, Calc 12 HDL Cholesterol 52 Cholesterol/HDL Ratio 4.7 HCG, Qual SARS-CoV-2, RNA, NAAT Diagnostic Findings Head CT 04/30/22 21:08 CT angio neck with con, CT angio head w con, CT head/brain wo con CLINICAL HISTORY: Stroke Like Symptoms TECHNIQUE: Contiguous axial CT images of the head were acquired from the base of the skull to the vertex without intravenous contrast administration. CT angiography of the head and neck was performed following intravenous administration of iodinated contrast. Coronal and sagittal MIPS were obtained from the axial data set and were submitted for review. Automated dose lowering techniques and/or adjustment according to patient size were utilized for this examination. All measurements were calculated based on NASCET criteria. CT DOSE: 1015.17 mGy.cm Comparison: None available at the time of this dictation. FINDINGS: CT head: There is no acute intracranial hemorrhage or evidence of acute territorial infarction. No shift of the midline structures, mass effect, or extra-axial abnormalities are shown. Lungs and soft tissues are unremarkable. CTA Neck: A 3 vessel aortic arch is shown. There is no significant atherosclerotic plaque in the aortic arch or the origins of the innominate, left common carotid, and left subclavian arteries. The common carotid, external carotid, cervical segments of the internal carotid arteries, and the cervical segments of the vertebral arteries are patent without hemodynamically significant stenosis. The vertebral arteries are codominant. CTA Head: The anterior and posterior cerebral circulations are patent. No hemodynamically significant stenosis, aneurysm, dissection, or arteriovenous malformation is shown. origin of the left posterior cerebral artery is seen. IMPRESSION: 1. No acute intracranial hemorrhage, evidence of acute territorial infarction, or other acute intracranial disease process. 2. No occlusion, hemodynamically significant stenosis, aneurysm, dissection, or arteriovenous malformation in the major intracranial arteries. 3. No occlusion, hemodynamically significant stenosis, or dissection in the major cervical arteries. Assessment of stenosis of the internal carotid arteries is based on NASCET criteria. ACT 112: Negative or not required by law. Electronically signed by: Miguel Phillips M.D. 04/30/2022 10:03 PM Head CTA 04/30/22 21:08 CT angio neck with con, CT angio head w con, CT head/brain wo con CLINICAL HISTORY: Stroke Like Symptoms TECHNIQUE: Contiguous axial CT images of the head were acquired from the base of the skull to the vertex without intravenous contrast administration. CT angiography of the head and neck was performed following intravenous administration of iodinated contrast. Coronal and sagittal MIPS were obtained from the axial data set and were submitted for review. Automated dose lowering techniques and/or adjustment according to patient size were utilized for this examination. All measurements were calculated based on NASCET criteria. CT DOSE: 1015.17 mGy.cm Comparison: None available at the time of this dictation. FINDINGS: CT head: There is no acute intracranial hemorrhage or evidence of acute territorial infarction. No shift of the midline structures, mass effect, or extra-axial abnormalities are shown. Lungs and soft tissues are unremarkable. CTA Neck: A 3 vessel aortic arch is shown. There is no significant atherosclerotic plaque in the aortic arch or the origins of the innominate, left common carotid, and left subclavian arteries. The common carotid, external carotid, cervical segments of the internal carotid arteries, and the cervical segments of the vertebral arteries are patent without hemodynamically significant stenosis. The vertebral arteries are codominant. CTA Head: The anterior and posterior cerebral circulations are patent. No hemodynamically significant stenosis, aneurysm, dissection, or arteriovenous malformation is shown. origin of the left posterior cerebral artery is seen. IMPRESSION: 1. No acute intracranial hemorrhage, evidence of acute territorial infarction, or other acute intracranial disease process. 2. No occlusion, hemodynamically significant stenosis, aneurysm, dissection, or arteriovenous malformation in the major intracranial arteries. 3. No occlusion, hemodynamically significant stenosis, or dissection in the major cervical arteries. Assessment of stenosis of the internal carotid arteries is based on NASCET criteria. ACT 112: Negative or not required by law. Electronically signed by: Miguel Phillips M.D. 04/30/2022 10:03 PM Neck CTA 04/30/22 21:08 CT angio neck with con, CT angio head w con, CT head/brain wo con CLINICAL HISTORY: Stroke Like Symptoms TECHNIQUE: Contiguous axial CT images of the head were acquired from the base of the skull to the vertex without intravenous contrast administration. CT angiography of the head and neck was performed following intravenous administration of iodinated contrast. Coronal and sagittal MIPS were obtained from the axial data set and were submitted for review. Automated dose lowering techniques and/or adjustment according to patient size were utilized for this examination. All measurements were calculated based on NASCET criteria. CT DOSE: 1015.17 mGy.cm Comparison: None available at the time of this dictation. FINDINGS: CT head: There is no acute intracranial hemorrhage or evidence of acute territorial infarction. No shift of the midline structures, mass effect, or extra-axial abnormalities are shown. Lungs and soft tissues are unremarkable. CTA Neck: A 3 vessel aortic arch is shown. There is no significant atherosclerotic plaque in the aortic arch or the origins of the innominate, left common carotid, and left subclavian arteries. The common carotid, external carotid, cervical segments of the internal carotid arteries, and the cervical segments of the vertebral arteries are patent without hemodynamically significant stenosis. The vertebral arteries are codominant. CTA Head: The anterior and posterior cerebral circulations are patent. No hemodynamically significant stenosis, aneurysm, dissection, or arteriovenous malformation is shown. origin of the left posterior cerebral artery is seen. IMPRESSION: 1. No acute intracranial hemorrhage, evidence of acute territorial infarction, or other acute intracranial disease process. 2. No occlusion, hemodynamically significant stenosis, aneurysm, dissection, or arteriovenous malformation in the major intracranial arteries. 3. No occlusion, hemodynamically significant stenosis, or dissection in the major cervical arteries. Assessment of stenosis of the internal carotid arteries is based on NASCET criteria. ACT 112: Negative or not required by law. Electronically signed by: Miguel Phillips M.D. 04/30/2022 10:03 PM Brain MRI 05/01/22 04:41 MRI OF THE BRAIN WITHOUT IV CONTRAST CLINICAL HISTORY: Migraine headache. Facial numbness. Upper extremity numbness. COMPARISON STUDY: CT of the brain dated 04/30/2022. TECHNIQUE: MRI of the brain was performed utilizing various T1 and T2-weighted sequences in the axial, sagittal, and coronal planes. IV contrast was not administered for this examination. FINDINGS: Brain parenchyma: The brain parenchyma is normal in appearance. There is no hemorrhage or mass effect. There is no restricted diffusion to suggest acute ischemia. Pritchard-white matter differentiation is preserved. No extra-axial fluid collection is seen. The cerebellar tonsils are normal in configuration. Ventricles, sulci, and cisterns: Normal in configuration. Pituitary and sella: Unremarkable. Intracranial vasculature: Normal flow voids are maintained at the skull base. Orbits: The bony orbits are grossly intact. Orbital contents are normal in appearance. Sinuses and mastoids: Clear. Calvarium: Unremarkable. Cervical cord: Partially visualized cervical spinal cord is normal in morphology and signal intensity. IMPRESSION: No intracranial abnormality is identified. ACT 112: Negative or not required by law. Electronically signed by: Nicholas Palacios M.D. 05/01/2022 10:09 AM Resident Activity Tracking Resident Involvement: Resident Care Provided Care Provided: Adult Hospital Medicine
[2022-05-01 08:00] LABS: Estimated Average Glucose 111 mg/dl; Hemoglobin A1C 5.5 % (4.5-5.6)
[2022-05-01 08:17] LABS: Calcium 9.9 mg/dl (8.5-10.1); Chol HDL Ratio 4.7 (0-5); Creatinine Clr Calc Pharmacy 107.5 ml/min; Est GFR (African American) 145.6 ml/min; Est GFR (Non-African American) 125.6 ml/min; Potassium 4.2 mmol/L (3.5-5.1)
[2022-05-01] MEDS ORDERED: SERTRALINE HCL 100 MG TABLET PO SCH (09:00)
--- NOTE | 2022-05-01 09:44 | Electrocardiogram Report ---
Test Reason : Blood Pressure : / mmHG Vent. Rate : 062 BPM Atrial Rate : 062 BPM P-R Int : 132 ms QRS Dur : 084 ms QT Int : 416 ms P-R-T Axes : 055 059 029 degrees QTc Int : 422 ms Normal sinus rhythm Normal ECG No previous ECGs available Confirmed by Julius Gilbert ([id number]) on 05/01/2022 9:43:57 AM Referred By: REFERRED SELF Confirmed By:Julius Gilbert
--- NOTE | 2022-05-01 10:11 | Magnetic Resonance Report ---
MRI OF THE BRAIN WITHOUT IV CONTRAST CLINICAL HISTORY: Migraine headache. Facial numbness. Upper extremity numbness. COMPARISON STUDY: CT of the brain dated 04/30/2022. TECHNIQUE: MRI of the brain was performed utilizing various T1 and T2-weighted sequences in the axial , sagittal, and coronal planes. IV contrast was not administered for this examination. FINDINGS: Brain parenchyma: The brain parenchyma is normal in appearance. There is no hemorrhage or mass effect . There is no restricted diffusion to suggest acute ischemia. Pricthard-white matter differentiation is pr eserved. No extra-axial fluid collection is seen. The cerebellar tonsils are normal in configuration. Ventricles, sulci, and cisterns: Normal in configuration. Pituitary and sella: Unremarkable. Intracranial vasculature: Normal flow voids are maintained at the skull base. Orbits: The bony orbits are grossly intact. Orbital contents are normal in appearance. Sinuses and mastoids: Clear. Calvarium: Unremarkable. Cervical cord: Partially visualized cervical spinal cord is normal in morphology and signal intensity . IMPRESSION: No intracranial abnormality is identified. ACT 112: Negative or not required by law. Electronically signed by: Nicholas Palacios M.D. 05/01/2022 10:09 AM
--- NOTE | 2022-05-01 12:33 | Neurology Consultation ---
Date of Consultation May 01, 2022 Assessment & Plan (1) Complicated migraine: (2) Left arm numbness: (3) Depression: Plan patient has a longstanding history of significant migraine headaches of a fairly frequent nature. They are classic migraines ( with aura) but many sound like complicated migraines as well (aura and headache going on at the same time). The word-finding difficulties, left face, and hand numbness or all part of the ongoing aura. Her headache an aura has resolved. On exam she has no focal findings, meningeal signs, or encephalopathy. MRI of the brain showed no chronic or acute changes. Her depression is fairly well controlled with sertraline. Recommendations: 1. We talked about treatment options at length and have elected to initiate a daily medication for headache prophylaxis. Given her vasospasm I would prefer to initiate verapamil SR 120 mg daily. I would avoid beta-blockers as this would make pressure and pulse too low. Other medication to consider to prevent headaches would be topiramate or a tricyclic (to to be used instead of sertraline ). 2. ideally I would like her on the CGRP inhibitor such as Emgality once monthly or Nurtec 75 mg every other day, but will have to see if her insurance will cover these. 3. Continue sertraline 100 mg each evening for now. 4. Avoid vasoconstrictive medications to be used as needed for migraine (such as Triptans) because this could make the vasospasm/aura worse. again, I would consider Nurtec 75 mg once daily as needed for migraine if insurance would pay for it. Otherwise we could use a different type of pain medicine as needed for now such as Fioricet or even ketorolac 10mg pills to tale with food (1-2 per week with food) 5. I have no further neurologic testing or treatment recommendations to make at this time. She should follow up in Neurology in 2 weeks with one of our PAs Overall, I spent a total of 100 minutes with this case including review of records, review of MRI films, direct evaluation the patient at bedside, and discussion of the case with the patient, mother, and RN at bedside, and Dr. Andres including differential diagnosis and treatment options. History of Present Illness Reason for Consultation: Patient is a 21-year-old, who was as see the request of Dr. Caldwell, for neurologic consultation regarding headache and numbness. Requesting Physician: Dr. Caldwell Attending Physician: Raul Andres DO History of Present Illness patient is accompanied by her mother in the room to help set to the history. they remember the patient passing out once in 3rd grade but she has not had any syncopal episodes since. No one was certain of the origin. she has had headaches since age 15. she does not believe that these headaches are associated with her menstrual cycle and by age 17 the became more frequent and more intense. Over the last year so she has been getting headache ranging anywhere once a month down to once or twice a week. Typically they are triggered by stress and she is not sure of any other particular triggers. Typical headache will start out with some blurry vision peripherally in the left or right eye. This will continue for about 30 minutes and then she will get a headache either left or right frontal. Occasionally it will radiate occipitally. Typically the blurry vision will last whole day or more. The headache will be a significant pounding pain with nausea, vomiting, photophobia, and sonophobia. Headache can last up to 1-2 days as well. Gvqk-juk-iphvgff medicines are of limited help. Patient has been having considerable stress helping to take care of her great grandmother who is age 90. She tried College last year but after couple of months decided that it was not for her that time. She has been on 100 mg sertraline he psychiatrist in [facility] since December of this year. Sertraline does help. She had the onset of a typical migraine headache yesterday late afternoon, but this time she had trouble speaking ( word-finding) and her left face and both hands were numb and tingly. The headache was severe and the speech and dysesthesias issues continued. She arrived at the emergency room at 8:49 p.m. on April 30, with a temperature 36.7, pulse 70s and regular, respiratory rate 20, blood pressure 116/67, O2 saturation 100% Exam was unremarkable with no focal findings, encephalopathy, or meningeal signs and the vision issues had stopped by the time she was in the emergency room. Her speech was back to normal as well. She continued with the severe headache. CBC and Chem profile were unremarkable. CT scan of the head, CT angiography of the head, and CT angiography of the neck were all unremarkable without acute findings or vascular anomalies. MRI of the brain was unremarkable with no acute findings or chronic ischemic changes either. Today she does not have any significant headache and has no other symptoms (back to baseline ). Blood pressure is 100/57 pulse 62 regular. Allergies Allergy/AdvReac Type Severity Reaction Status Date / Time No Known Allergies Allergy Unverified 05/01/22 02:21 Home Medications Medication Instructions Recorded Confirmed Type aspirin 81 mg tablet,delayed 81 mg PO DAILY PRN .Headache 05/01/22 History release multivitamin with minerals-folic 1 tab PO DAILY 05/01/22 05/01/22 History acid 200 mcg chewable tablet (Adult Multivitamin Gummies) sertraline 100 mg tablet 100 mg PO DAILY 05/01/22 05/01/22 History Patient History Medical History (Updated 05/01/22 @ 12:25 by Brent Russell MD) Depression Headache Social History Smoking Status: Never smoker Hx Alcohol Use: No Hx Substance Use: No Communication Ability: Effective Beliefs That Will Affect Care: None Current Living Situation: Other Current Living Situation Comment: lives w/ grandparent, will be moving back in with family Feels Safe at Home: Yes Safety Concerns: Feels Safe At This Time Review of Systems Constitutional: no fever, no fatigue and no weakness Eyes: no diplopia, no eye pain and no worsening vision Ear, Nose, Mouth, Throat: no ear pain, no tinnitus, no hearing loss, no dizziness, no snoring, no hoarseness and no dysphagia Respiratory: no cough and no dyspnea Cardiovascular: no chest pain, no palpitations and no lightheadedness Gastrointestinal: no abdominal pain, no nausea and no vomiting Genitourinary: no dysuria, no urinary frequency and no urinary incontinence Musculoskeletal: + neck pain; no back pain, no radicular pain, no joint pain and no myalgia Integumentary: no rash and no lesions Neurologic: no gait abnormality, no localized weakness, no generalized weakness, no tingling, no numbness, no tremor(s), no abnormal movements, no headache(s), no abnormal speech, no confusion and no memory loss Psychiatric: + depression and + anxiety; no irritability, no difficulty concentrating, no confusion and no hallucinations Endocrine: no fatigue and no flushing Hematologic / Lymphatic: no easy bleeding and no easy bruising Allergy / Immunological: no urticaria and no problem reported Exam (Neuro) Physical Exam: The patient is right-handed. The patient is awake, alert, and attentive. Speech is normal without any aphasia or dysarthria. The patient can name objects, repeat phrases, and has normal spontaneous speech. Mentation and thought processes are intact, with orientation to person, place and time, and normal fund of knowledge. Attention and concentration are normal. Mood and affect are normal and appropriate. General appearance and grooming are normal. Short and long-term memory are intact. The discs are sharp with positive venous pulsations bilaterally. There are no exudates, hemorrhages, or blood vessel changes seen. Pupils are 4 mm bilaterally and reactive to light. Extraocular eye muscles are intact without nystagmus. Visual acuity and visual corona seem normal grossly to confrontation. There are no deficits to sensation in the face in all 3 distributions of the fifth cranial nerve bilaterally. Corneal reflexes are positive bilaterally. Facial strength and symmetry was normal bilaterally. Hearing seems normal bilaterally. Palate moves well without asymmetry. There is normal sternocleidomastoid and trapezius (shoulder shrug) strength bilaterally. Tongue is midline with good strength bilaterally. Neck has a full range of motion without discomfort. There are no cervical bruits bilaterally. There are no cranial or ocular bruits. Heart is without murmur. There is a regular rhythm and rate. Cervical, thoracic, and lumbar spine are nontender to palpation. Gait is narrow based, with good arm swing, turns, and stance. With outstretched arms there is no drift. There are no resting, postural, or action tremors. There is no ataxia with finger to nose testing. There is good facility in the hands. No other abnormal involuntary movements are noted. Motor strength is 5/5 diffusely in the arms bilaterally including deltoids, biceps, triceps, brachioradialis, wrist flexors and extensors, manager primary, and intrinsic hand muscles. Motor strength is 5/5 diffusely in the legs bilaterally including hip flexors, quadriceps, hamstrings, gastrocnemius, tibialis anterior, tibialis posterior, and Peroneii muscles. Toe extensors are normal and there is good bulk in the extensor digitorum brevis muscles bilaterally. The limbs have good tone without rigidity or spasticity. There is no atrophy noted in the muscles. Muscle bulk is normal, there is no tenderness to palpation, no myotonia to percussion, and no fasciculations seen. Sensory examination is intact to touch and pin throughout all 4 limbs diffusely. Reflexes are 2/4 in the biceps, triceps, brachioradialis, quadriceps, and Achi lles tendons bilaterally. There is no clonus bilaterally. Toes are downgoing with plantar stimulation bilaterally. Peripheral pulses are present and of normal quality distally in all 4 limbs. There is no peripheral edema noted in the limbs. Results & Data ([facility]) Vital Signs (Past 12 Hours) Vital Signs Temp Pulse Pulse Resp BP Pulse Ox Pulse Ox 05/01/22 07:00 60 05/01/22 06:32 36.5 C 73 18 100/57 L 97 05/01/22 05:04 70 05/01/22 04:45 36.7 C 70 18 112/63 99 05/01/22 04:41 99 05/01/22 04:41 36.7 C 70 20 112/63 99 05/01/22 02:00 70 18 107/53 L 97 05/01/22 00:32 75 16 100/57 L 99 O2 Del Method O2 Del Method 05/01/22 07:00 05/01/22 06:32 Room Air 05/01/22 05:04 05/01/22 04:45 Room Air 05/01/22 04:41 Room Air 05/01/22 04:41 Room Air 05/01/22 02:00 Room Air 05/01/22 00:32 Room Air PG Care Time/CCT Total # of Minutes Spent Total Time Spent with Patient: Total time spent is greater than 50% in coordination of care (as documented) at patient's floor/unit and/or counseling patient: Coding Level of Care Code 68368 Inpt Consult Level 5 Diagnoses Complicated migraine G43.109 Left arm numbness R20.0 Depression F32.A
--- NOTE | 2022-05-01 15:36 | Discharge Summary ---
Date of Service May 01, 2022 Admission HPI Per Admitting Provider 21 year old female with anxiety on sertraline who presents w/ left sided headache. It is located at the top of her head, anterior half and goes down neck. She does have chronic neck and back pains. She has had chronic headaches that she presumes to be migraines. Frequency was previously once a month, but recently became once a week, and had 2 this week. They usually are severe and have aura type symptoms, including arm numbness and blurry vision. + photophobia. Today, she had similar episode, rated as 10/10, and had facial and left arm numbness and tingling, mild blurry vision mild chest tightness, so she called EMS. No speech slurring or aphasia. Denies falls or msk injuries. She has been under increased stress lately as she has been taking care of her great grandmother during upcoming transition to nursing facility. Denies substance use. Denies family hx of arterial thrombosis. Mother had 1 episode of migraine headache during . Patient rarely will take a tylenol or baby asa. Mother is present at bedside and assisted with the history. EMS report: L sided SHEPHERD. Resolved L sided numbness and facial tingling. Had photophobia and tinnitus. 1 hour onset. +nausea, no vomiting. ED course: 1L NSS. phenergan, benadryl, toradol, dexamethasone, magnesium, reglan. S/p this intervention, patient's headache improved to a 1/10. She still has photophobia and exacerbation of headache with head movement. Admission Exam Per Admitting Provider General: Grossly A&O. NAD. Cooperative. HEENT: Atraumatic, normocephalic. EOMI Pulm: CTAB. -wheezes, -rales, -rhonchi. No respiratory distress. Cardiac: RRR, -mrg. Radial pulses intact and symmetrical. Abdominal: Nontender, nondistended, soft. Msk: No C spine ttp. + mild left lateral trapezius distribution soreness. Moving all extremities without difficulty. Negative Spurling's bilaterally. Integ: Warm, dry, intact. Neuro: CN II-XII intact. Normal hzxgas-ok-stbs. Normal strenth and sensation of extremities. No aphasia. Principal Diagnosis Headache Discharge Exam Constitutional WD/WN, vitals as above ENMT external ear and nose normal, oropharynx normal Respiratory normal respiratory effort, lungs clear to auscultation Cardiovascular RRR, no murmur, no edema Gastrointestinal (Abdomen) normal bowel sounds, soft, nontender, no hepatosplenomegaly Musculoskeletal OMT: right>left suboccipital tissue texture tightness and tenderness on exam -> inhibitory pressure treatment applied to suboccipital region bilaterally -> bilateral suboccipital muscle released and patient expressed improvement in symptoms, tolerated the treatment well Discharge Data Allergies Allergy/AdvReac Type Severity Reaction Status Date / Time No Known Allergies Allergy Unverified 05/01/22 02:21 Consultations 05/01/22 00:57 ED Decision to Admit Stat 05/01/22 04:41 Consult Neurology Routine Ordered Studies 04/30/22 21:08 CT angio head w con Stat CT angio neck with con Stat CT head/brain wo con Stat 05/01/22 04:41 MR brain wo con Routine Hospital Course (1) Headache: (2) Depression: Plan Ms. Chaves was brought to the ED via ambulance on 04/30 after experiencing a headache with features of left sided weakness/numbness/tingling of the face and UE as well as word finding difficulties. Over the past month, the patient has experienced 4-5 headaches with increasing frequency and intensity of symptoms. She was assessed via CT scan and EKG in the ED to rule out concerns for stroke. She was treated with compazine, ketorolac, reglan, in the ED for pain and nausea. Upon hospital admission, an MRI and echo with bubble study were performed and had negative findings. After admission, the patient's symptoms improved and the numbness/tingling/weakness/word finding trouble all resolved. Neurology was consulted and provided recommendations. #Headache #atypicalmigraine May be a combination of both migraine and tension headaches. Will start Verapamil per Neurology consult recommendations. Discussed trial of "inhibitory pressure" hands on techniques. Follow up with PCP. #Depression Chronic, stable. Continue with current prescription of sertraline Total Time Total Time Spent Total Time Spent (In Minutes): 30 Discharge Plan Discharge Items Patient Disposition: Home - Self-Care Reason For Visit: STROKE-LIKE SYMPTOMS WITH HEADACHE Discharge Diagnosis: headache - migraine, and likely tension component as well (see below) Activity: Resume your previous activity Non-emergency contact: Primary Care Provider and Neurologist Call non-emergency contact if: you have any medication questions and your symptoms worsen Follow-up/Referrals: PCP,NO [Primary Care Provider] - Diet: Regular Addtl Attending Provider Instructions: Headache -The headaches that brought you to the hospital is what we would call a "complicated migraine" or a "transformed migraine"fortunately it is better -A typical migraine usually occurs when blood vessels within the brain dilate. Since the skull is in enclosed case without a lot of room for expansion, that expansion creates pain and pressure/downstream neurologic dysfunctioncreating a migraine. With these complicated migraines, usually there is also an element of blood vessel constrictionwhich leads to the strokelike symptoms that you are experiencing. Fortunately there was no sign of any actual stroke/brain damage/compromised tissueand actually with atypical/complicated migraines true stroke is exceedingly rare As we discussed, the headaches you have been experiencing probably are a "mixed bag" of migraine and tension headaches playing off of each other -"Splitting hairs" you could identify the headache more as a tension headache when it does not have the accompanying difficulty with bright lights/loud sounds, or nausea. Both migraine and tension will have that nasty throbbing/splitting feeling on the side of your head. -Right now, your headache pattern seems to be that you either have a migraine headache right off the bat, or you start with a tension headache, but fairly quickly the same day it triggers a migraine. Most people who struggle with both actually have some degree of separation, where they have days that are purely tension headache days, and days that are predominantly migraine headache daysbut with a lot more time in between when the tension headache triggers the migraine. -What we usually see is that both play off of each othera migraine headache will very commonly trigger neck tension/tension headache, and for a lot of people (yourself included) the head/neck pain from a tension headache can trigger the migraine -The reason this becomes important from a migraine standpoint, is that when Dr. Russell set you up with any sort of migraine specific "break the migraine" treatment, if you try taking it whenever it is a tension headache it really will not help. Similarly, if we treat a mixed headache picture purely as migrainous, but do not do anything to improve the tension headache portion, the most common trigger for tension headaches will remain, and headache cycle is usually much more difficult to break -For now, given that you do deteriorate into true migraines pretty frequently with this, I agree with Dr. Russell thinking that you would do better with a migraine preventative medicine. He has recommended verapamilthis is most comm only used as a blood pressure medicine, but your blood pressure should be able to "handle" the dosing without much of any problem. If you do feel weak/lightheaded/excess fatigueit easily could be the verapamilbut at the lowest dose they make, its not very likely this will happen. Further, we will have you use it at bedtime so that if you do feel any transient weakness from it, you will likely sleep through it. -Hopefully over time, as we get ahead of the tension headache portion of this, we can reduce the "triggers" that are causing your migraines, and we may be able to work her way off of the verapamil. For now I would look at it as a medication that is "indefinite but temporary". Please note that verapamil usually does not work well to stop a headache once it happens, that it really works far better when taken every day as a preventative -Dr. Russell/his office will be in contact with you about follow-upthey will be able to "take point" on the verapamil/on medications to specifically break the migraine headache when they happen. In the meantime, if you start to feel a migraine headache ramp-up, something along the lines of 2 Excedrin, or 3 [id number] ibuprofen (not both), as well as an ice pack to the back of the neck is a reasonable strategy. -As it relates to his tension headache portiontypically the "anatomy of a tension headache" starts with what are called the suboccipital muscles. I would definitely recommend simply doing a Google image search for "suboccipital muscles" so that you can see the anatomybut basically they are 3 muscles that tie the base of your skull to the upper part of your neck. When they get tight, that create neck pain right they are in the area because of the muscle tightness, but also a nerve called the greater occipital nerve runs straight through the triangle of muscles. Because of this, when those muscles are tight and spastic, they will also cause compression on the greater occipital nervewhich can radiate pain up and around the side of your head. -Generally speaking, manual medicine to soften and loosen the suboccipital muscles tends to be one of the most effective ways at calming down the tension headache part of the equation. -As we did/demonstrated on you, one of the simplest ways to work on the suboccipital muscles is what is called "inhibitory pressure"where you find the muscles (easily found based on how tender they are) and push with steady heavy pressure for about 30-45 seconds. As you are pushing, you can sometimes feel the muscle soften/twitch/relaxif you feel that, and/or the tenderness lets up, then you know that you are "done for that day" with that particular muscle. Because there are 3 suboccipital muscles, it is very common for people to have 2 or all 3 be very tenderso you would repeat the pressure for all of those areas. -Like we discussed, given that we showed your mom how to do this, and it is far easier to have somebody else work on you (particularly in a very painful area) than working on yourself, I would recommend mom give trial to this "inhibitory pressure" technique for both sides of your suboccipitals about 3 times a week. If we start to see good improvement in the headaches/tension headaches, and overall pattern of headache/pain, then you can start to space things out to twice a week/once a week/so on. If, however, things are not improving, then you may need to be set up for somebody to professionally be working on your neck. Here in [place], we have several DO physicians who do a lot of OMTthe only unfortunate thing there is that its about an hour from your home. That said, if you end up needing to look in this direction, I would have you see one of our DO resident physicians (such as Dr Ulloa, who was part of your team here in the hospital) to continue to work on the neck muscles. Closer to home, if you find good animal caretaker, a good chiropractor will do techniques extremely similar to a good DO. Like we discussed, sometimes the easiest way to discern who will be helpful is simply their focus. If somebody is looking at your neck muscles, muscles at the base of the skull, and may be working from the top of your head to between her shoulder bladesand looking at it as a musculoskeletal problemthat would likely be somebody who is "a keeper". If there is a lot of ancillary staff, if somebody is pushing a lot of supplements, etc.then it would probably be better to seek other care. -Given that this has been getting worse over the last few months, it may take a little while to get ahead of things, but the hope would be this does not need to be a "new normal"be persistent with treatment, but also be patient in giving it a few months for improvement. Pending Studies at Discharge: No Stand-Alone Forms: My [facility], Smoking Cessation Medications and DC Order Prescriptions: New verapamil 120 mg capsule,ext rel. pellets 24 hr 120 mg PO HS Qty: 30 0RF Continued sertraline 100 mg tablet 100 mg PO DAILY aspirin 81 mg Tablet,Delayed Release (Dr/Ec) 81 mg PO DAILY PRN (Reason: .Headache) Adult Multivitamin Gummies 200 mcg Tablet,Chewable 1 tab PO DAILY Discharge Orders: Discharge Order (Routine); Ordered 05/01/22 Ordered By: Raul Andres Admission Data Admit Date/Time: 05/01/22 03:34 Attending Provider: Raul Andres Admit Provider: Silas Jo Primary Care Provider: PCP,NO Other Providers: Abad Caldwell Emile Other Interventions: Discharge Summary Assessment (RN) Last Done: 05/01/22 12:54
--- NOTE | 2022-05-01 17:37 | Billing Data ---
Date of Service May 01, 2022 Coding Level of Care Code D/C DAY MANAGEMENT >30 MINS
--- NOTE | 2022-05-01 17:37 | Hospitalist Progress Note ---
Date of Service May 01, 2022 Assessment & Plan Admission and Anticipated Discharge Date Admission Date: May 01, 2022 Results & Data Results & Data ([facility]) Vital Signs (Past 12 Hours) Vital Signs Temp Pulse Pulse Resp BP Pulse Ox O2 Del Method 05/01/22 15:00 85 05/01/22 12:54 98.1 F 76 18 112/68 98 05/01/22 12:33 98.1 F 76 18 112/68 98 Room Air 05/01/22 07:00 60 05/01/22 06:32 97.7 F 73 18 100/57 L 97 Room Air PG Care Time/CCT Total # of Minutes Spent Total Time Spent with Patient: Total time spent is greater than 50% in coordination of care (as documented) at patient's floor/unit and/or counseling patient: Coding Level of Care Code None CPT Codes Musculoskeletal - Musculoskeletal: [address] 1-2 Body regions ([id number])
--- NOTE | 2022-05-02 03:47 | Billing Data ---
Date of Service May 02, 2022 Coding Level of Care Code INT OBSERVATION CARE 70M LVL 3
== END 2022-05-01 16:17 | disposition home or self-care (01) | DRG 103 ==
LOC: ED 20:45 → 2S 05-01 03:34 → SUATTDRO 05-01 03:34 → INTOOBSV 05-01 03:34 → 2S 05-01 04:19